=== PATIENT | male | born 1940 | race African-American/Black ===

== ENCOUNTER 2022-11-12 10:00 | Inpatient (IN) | payer MEDICARE, MEDICAID ==
[~2022-11-12] VITALS: Ht 175.3 cm; Wt 53.5 kg
[2022-11-12] MEDS ORDERED: IPRATROPIUM BROMIDE (0.02%) 0.5MG/2.5ML NEB HHN STA (10:06)
[2022-11-12] MEDS ORDERED: METHYLPREDNISOLONE SOD SUCC 125 MG/2 ML VIAL IV STA (10:06)
[2022-11-12] MEDS ORDERED: ALBUTEROL (0.083%) 2.5MG/3ML NEB HHN STA (10:06)
[2022-11-12 10:26] LABS: HEMATOCRIT. 35.1 % (42.0-52.0); HEMOGLOBIN. 11.9 g/dL (14.0-18.0); MEAN CORPUSCULAR VOLUME 82.6 fL (80.0-94.0); MEAN PLATELET VOLUME 8.6 fl (7.4-10.4); PLATELET 310 x1000/uL (130-400); RED BLOOD CELL COUNT 4.25 mill/uL (4.7-6.1); RED CELL DISTRIBUTION WIDTH 14.8 % (11.6-14.6)
[2022-11-12 10:31] LABS: CHLORIDE 98 mEq/L (98-107)
[2022-11-12 11:00] LABS: PLATELET ESTIMATE NORMAL
[2022-11-12 11:10] LABS: BG BASE EXCESS 0.3 mmol/L (-2.0-2.0); BG CARBOXYHEMOGLOBIN 0.6 % (0.5-1.5); BG FRACTION INSPIRED OXYGEN 50; BG HCO3 ACT 29.9 mmol/L (22.0-26.0); BG METHEMOGLOBIN 0.6 % (0.0-1.5); BG OXYHEMOGLOBIN 95.8 % (94.0-97.0); BG PH 7.218 (7.350-7.450); BG PO2 104.1 mmHg (75.0-100.0); BG SAMPLE SITE RIGHT BRACHIAL; BG TOTAL HEMOGLOBIN 12.5 g/dL (12.0-18.0); BG TOTAL RESPIRATORY RATE 34 b/min; BG VENT MODE MASK - BIPAP
[2022-11-12] MEDS ORDERED: ONDANSETRON HCL 4MG/2ML INJ IV PRN (13:30)
[2022-11-12] MEDS ORDERED: MAGNESIUM/ALUMINUM HYDROXIDE/SIMETHICONE 30ML UDC PO PRN (13:30)
[2022-11-12] MEDS: AMLODIPINE 5MG TABLET PO SCH ×2 (13:30→21:00)
[2022-11-12] MEDS ORDERED: GUAIFENESIN 200MG/10ML SUGAR FREE UDC PO PRN (13:30)
[2022-11-12] MEDS ORDERED: ACETAMINOPHEN 325MG TABLET PO PRN ×2 (13:30)
[2022-11-12] MEDS: SODIUM CHLORIDE 0.9% 1,000 ML IV SCH (13:30)
[2022-11-12] MEDS ORDERED: CEFTRIAXONE 1GM PREMIX 50 ML IV SCH (13:30)
[2022-11-12] MEDS ORDERED: DOCUSATE SODIUM 100MG CAPSULE PO PRN (13:30)
[2022-11-12] MEDS ORDERED: DEXTROSE 50% WATER 50ML SYRINGE IV PRN (13:30)
[2022-11-12] MEDS ORDERED: CLONIDINE 0.1MG TABLET PO PRN (13:30)
[2022-11-12] MEDS ORDERED: NA PHOS,M-B/NA PHOS,DI-BA ENEMA 118ML PR PRN (13:30)
[2022-11-12] MEDS ORDERED: METHYLPREDNISOLONE SOD SUCC 125 MG/2 ML VIAL IV SCH (14:00)
[2022-11-12] MEDS: ENOXAPARIN 40MG/0.4ML SYR SUBCUT SCH (14:00)
[2022-11-12] MEDS ORDERED: AZITHROMYCIN 500 MG in DEXT 5% WATER 250 ML IV SCH (14:30)
[2022-11-12] MEDS ORDERED: HYDRALAZINE 20MG/ML VIAL IV PRN (14:45)
[2022-11-12] MEDS: IPRATROPIUM/ALBUTEROL 0.5-3(2.5)MG/3ML NEB HHN SCH ×2 (15:06→20:54)
[2022-11-12] MEDS ORDERED: RACEPINEPHRINE 2.25% 0.5ML NEB VIAL HHN PRN (15:45)
[2022-11-12] MEDS: METHYLPREDNISOLONE SOD SUCC 125 MG/2 ML VIAL IV SCH (16:00)
[2022-11-12 16:10] LABS: D-DIMER 1.1 mg/L FEU (<0.50); PROTHROMBIN TIME 10.9 sec (9.6-11.0)
[2022-11-12 16:18] LABS: PROSTRATE SPECIFIC AG TOTAL 7.23 ng/mL (0.0-4.0)
[2022-11-12 16:20] LABS: FOLIC ACID (FOLATE) SERUM 16.2 ng/mL (>5.38)
[2022-11-12] MEDS: BLOOD SUGAR DIAGNOSTIC STRIP TEST SCH ×2 (17:00→21:52)
[2022-11-12 17:10] LABS: BG BASE EXCESS -0.9 mmol/L (-2.0-2.0); BG CARBOXYHEMOGLOBIN 0.5 % (0.5-1.5); BG DEOXYHEMOGLOBIN 1.9 % (0.0-5.0); BG METHEMOGLOBIN 0.6 % (0.0-1.5); BG OXYGEN SATURATION 98.1 % (92.0-98.5); BG PH 7.233 (7.350-7.450); BG PO2 111.1 mmHg (75.0-100.0); BG SAMPLE SITE RIGHT BRACHIAL; BG TOTAL HEMOGLOBIN 12.8 g/dL (12.0-18.0); BG VENT MODE MASK - BIPAP
[2022-11-12] MEDS: INSULIN LISPRO 100 UNITS/ML SUBCUT SCH ×2 (18:20→21:52)
[2022-11-12 19:22] LABS: CLARITY URINE CLEAR (CLEAR); COLOR URINE YELLOW (YELLOW); KETONES URINE NEGATIVE (NEGATIVE); LEUKOCYTE ESTERASE URINE NEGATIVE (NEGATIVE); NITRITE URINE NEGATIVE (NEGATIVE); OCCULT BLOOD URINE 2+ (NEGATIVE); PROTEIN URINE 2+ (NEGATIVE); SPECIFIC GRAVITY URINE 1.017 (1.005-1.030); UROBILINOGEN URINE 0.2 E.U./dL (0.2-1.0)
[2022-11-12] MEDS: FAMOTIDINE 20MG TABLET PO SCH (21:52)
[2022-11-12] MEDS ORDERED: METHYLPREDNISOLONE SOD SUCC 40 MG/ML VIAL IV SCH (22:00)
[2022-11-13] MEDS: IPRATROPIUM/ALBUTEROL 0.5-3(2.5)MG/3ML NEB HHN SCH ×7 (00:48→23:31)
[2022-11-13] MEDS ORDERED: METHYLPREDNISOLONE SOD SUCC 40 MG/ML VIAL IV NR (02:45)
[2022-11-13] MEDS: METHYLPREDNISOLONE SOD SUCC 125 MG/2 ML VIAL IV SCH ×3 (03:09→21:16)
[2022-11-13] MEDS: INSULIN LISPRO 100 UNITS/ML SUBCUT SCH ×4 (07:00→20:37)
[2022-11-13] MEDS: BLOOD SUGAR DIAGNOSTIC STRIP TEST SCH ×4 (07:06→20:36)
[2022-11-13 10:01] LABS: BG BASE EXCESS 1.7 mmol/L (-2.0-2.0); BG CARBOXYHEMOGLOBIN 0.6 % (0.5-1.5); BG DEOXYHEMOGLOBIN 1.6 % (0.0-5.0); BG FRACTION INSPIRED OXYGEN 50; BG METHEMOGLOBIN 0.4 % (0.0-1.5); BG OXYGEN SATURATION 98.4 % (92.0-98.5); BG OXYHEMOGLOBIN 97.4 % (94.0-97.0); BG PCO2 85.1 mmHg (35.0-45.0); BG PH 7.193 (7.350-7.450); BG PO2 119.6 mmHg (75.0-100.0); BG SAMPLE SITE RIGHT RADIAL; BG TOTAL RESPIRATORY RATE 20 b/min; BG VENT MODE MASK - BIPAP
[2022-11-13] MEDS: SODIUM CHLORIDE 0.9% 1,000 ML IV SCH (11:20)
[2022-11-13 11:38] VITALS: BP 131/59
[2022-11-13] MEDS: AMLODIPINE 5MG TABLET PO SCH ×2 (11:52→20:36)
[2022-11-13] MEDS: ENOXAPARIN 40MG/0.4ML SYR SUBCUT SCH (13:54)
[2022-11-13 14:00] VITALS: BP 118/50
[2022-11-13] MEDS: CEFTRIAXONE 1GM PREMIX 50 ML IV SCH (15:27)
[2022-11-13 16:00] VITALS: BP 124/67
[2022-11-13] MEDS: AZITHROMYCIN 500 MG in DEXT 5% WATER 250 ML IV SCH (16:26)
[2022-11-13 18:00] VITALS: BP 111/56
[2022-11-13 20:00] VITALS: BP 133/73
[2022-11-13] MEDS: FAMOTIDINE 20MG TABLET PO SCH (20:35)
[2022-11-13 22:00] VITALS: BP 112/59
[2022-11-14] VITALS (13 sets, daily range): BP systolic 101–135; BP diastolic 50–92
[2022-11-14] MEDS: IPRATROPIUM/ALBUTEROL 0.5-3(2.5)MG/3ML NEB HHN SCH ×4 (04:00→20:25)
[2022-11-14 05:27] LABS: HEMATOCRIT. 32.3 % (42.0-52.0); HEMOGLOBIN. 10.7 g/dL (14.0-18.0); MEAN CORPUSCULAR HEMOGLOBIN 27.5 pg (28.0-32.0); MEAN CORPUSCULAR VOLUME 83.2 fL (80.0-94.0); MEAN PLATELET VOLUME 8.2 fl (7.4-10.4); PLATELET 295 x1000/uL (130-400); RED BLOOD CELL COUNT 3.88 mill/uL (4.7-6.1); RED CELL DISTRIBUTION WIDTH 14.4 % (11.6-14.6)
[2022-11-14] MEDS: SODIUM CHLORIDE 0.9% 1,000 ML IV SCH (05:51)
[2022-11-14] MEDS: BLOOD SUGAR DIAGNOSTIC STRIP TEST SCH ×4 (05:51→21:51)
[2022-11-14] MEDS: METHYLPREDNISOLONE SOD SUCC 125 MG/2 ML VIAL IV SCH ×3 (05:51→21:53)
[2022-11-14] MEDS: INSULIN LISPRO 100 UNITS/ML SUBCUT SCH ×4 (06:00→21:00)
[2022-11-14 06:02] LABS: CHLORIDE 99 mEq/L (98-107)
[2022-11-14 06:21] LABS: PHOSPHORUS 2.7 mg/dL (2.5-4.9)
[2022-11-14 08:39] LABS: BG CARBOXYHEMOGLOBIN 0.9 % (0.5-1.5); BG DEOXYHEMOGLOBIN 5.4 % (0.0-5.0); BG FRACTION INSPIRED OXYGEN 24; BG HCO3 ACT 29.2 mmol/L (22.0-26.0); BG METHEMOGLOBIN 0.2 % (0.0-1.5); BG OXYGEN SATURATION 94.5 % (92.0-98.5); BG OXYHEMOGLOBIN 93.5 % (94.0-97.0); BG PCO2 52.1 mmHg (35.0-45.0); BG PH 7.367 (7.350-7.450); BG PO2 70.2 mmHg (75.0-100.0); BG SAMPLE SITE RIGHT BRACHIAL; BG TOTAL HEMOGLOBIN 11.9 g/dL (12.0-18.0); BG VENT MODE MASK - BIPAP
[2022-11-14] MEDS: AMLODIPINE 5MG TABLET PO SCH ×2 (08:51→21:53)
[2022-11-14 10:45] LABS: PLATELET ESTIMATE NORMAL
[2022-11-14] MEDS: TAMSULOSIN HCL 0.4MG SR CAPSULE PO SCH (11:40)
[2022-11-14] MEDS: CEFTRIAXONE 1GM PREMIX 50 ML IV SCH (15:36)
[2022-11-14] MEDS: ENOXAPARIN 30MG/0.3ML SYR SUBCUT SCH (15:59)
[2022-11-14] MEDS ORDERED: ALBUTEROL (0.083%) 2.5MG/3ML NEB HHN SCH (16:00)
[2022-11-14] MEDS ORDERED: IPRATROPIUM BROMIDE (0.02%) 0.5MG/2.5ML NEB HHN SCH (16:00)
[2022-11-14] MEDS: AZITHROMYCIN 500 MG in DEXT 5% WATER 250 ML IV SCH (16:29)
[2022-11-14] MEDS: FAMOTIDINE 20MG TABLET PO SCH (21:53)
[2022-11-15] VITALS (10 sets, daily range): BP systolic 98–145; BP diastolic 47–82
[2022-11-15] MEDS: IPRATROPIUM/ALBUTEROL 0.5-3(2.5)MG/3ML NEB HHN SCH ×5 (00:51→21:55)
[2022-11-15] MEDS: SODIUM CHLORIDE 0.9% 1,000 ML IV SCH ×2 (01:20→20:43)
[2022-11-15] MEDS: METHYLPREDNISOLONE SOD SUCC 125 MG/2 ML VIAL IV SCH (05:03)
[2022-11-15 07:12] LABS: HEMATOCRIT. 32.1 % (42.0-52.0); MEAN CORPUSCULAR HEMOGLOBIN 28.2 pg (28.0-32.0); MEAN CORPUSCULAR VOLUME 82.6 fL (80.0-94.0); MEAN PLATELET VOLUME 8.3 fl (7.4-10.4); PLATELET 313 x1000/uL (130-400); RED BLOOD CELL COUNT 3.89 mill/uL (4.7-6.1); RED CELL DISTRIBUTION WIDTH 14.2 % (11.6-14.6)
[2022-11-15] MEDS: BLOOD SUGAR DIAGNOSTIC STRIP TEST SCH ×5 (07:37→20:11)
[2022-11-15] MEDS: INSULIN LISPRO 100 UNITS/ML SUBCUT SCH ×4 (07:37→20:13)
[2022-11-15 08:05] LABS: CHLORIDE 101 mEq/L (98-107)
[2022-11-15 09:06] LABS: BG BASE EXCESS 3.5 mmol/L (-2.0-2.0); BG CARBOXYHEMOGLOBIN 0.3 % (0.5-1.5); BG DEOXYHEMOGLOBIN 6.2 % (0.0-5.0); BG FRACTION INSPIRED OXYGEN 21; BG HCO3 ACT 27.9 mmol/L (22.0-26.0); BG METHEMOGLOBIN 0.3 % (0.0-1.5); BG OXYGEN SATURATION 93.8 % (92.0-98.5); BG OXYHEMOGLOBIN 93.2 % (94.0-97.0); BG PCO2 41.7 mmHg (35.0-45.0); BG PH 7.443 (7.350-7.450); BG PO2 69.4 mmHg (75.0-100.0); BG SAMPLE SITE RIGHT RADIAL; BG TOTAL HEMOGLOBIN 11.6 g/dL (12.0-18.0); BG VENT MODE ROOM AIR
[2022-11-15] MEDS: TAMSULOSIN HCL 0.4MG SR CAPSULE PO SCH (09:42)
[2022-11-15] MEDS: AMLODIPINE 5MG TABLET PO SCH ×2 (09:42→20:11)
[2022-11-15] MEDS: CEFTRIAXONE 1GM PREMIX 50 ML IV SCH (15:56)
[2022-11-15] MEDS: ENOXAPARIN 30MG/0.3ML SYR SUBCUT SCH (15:57)
[2022-11-15] MEDS ORDERED: AZITHROMYCIN 500 MG TABLET PO SCH (16:00)
[2022-11-15] MEDS: METHYLPREDNISOLONE SOD SUCC 40 MG/ML VIAL IV SCH (18:23)
[2022-11-15] MEDS: FAMOTIDINE 20MG TABLET PO SCH (20:10)
[2022-11-15 21:00] LABS: PLATELET ESTIMATE NORMAL
[2022-11-15] MEDS: BUDESONIDE 0.5MG/2ML NEB HHN SCH (21:55)
[2022-11-16 00:01] VITALS: BP 133/51
[2022-11-16] MEDS: IPRATROPIUM/ALBUTEROL 0.5-3(2.5)MG/3ML NEB HHN SCH ×2 (01:17→09:00)
[2022-11-16 04:00] VITALS: BP 99/57
[2022-11-16] MEDS: BLOOD SUGAR DIAGNOSTIC STRIP TEST SCH ×2 (05:18→12:14)
[2022-11-16] MEDS: INSULIN LISPRO 100 UNITS/ML SUBCUT SCH ×2 (05:18→12:38)
[2022-11-16 06:50] LABS: HEMATOCRIT. 30.5 % (42.0-52.0); HEMOGLOBIN. 10.3 g/dL (14.0-18.0); MEAN CORPUSCULAR HEMOGLOBIN 27.6 pg (28.0-32.0); MEAN CORPUSCULAR VOLUME 81.8 fL (80.0-94.0); MEAN PLATELET VOLUME 7.7 fl (7.4-10.4); PLATELET 309 x1000/uL (130-400); RED BLOOD CELL COUNT 3.73 mill/uL (4.7-6.1); RED CELL DISTRIBUTION WIDTH 14.3 % (11.6-14.6)
[2022-11-16 08:00] VITALS: BP 150/58
[2022-11-16] MEDS: METHYLPREDNISOLONE SOD SUCC 40 MG/ML VIAL IV SCH (08:50)
[2022-11-16] MEDS: AMLODIPINE 5MG TABLET PO SCH (08:51)
[2022-11-16] MEDS: TAMSULOSIN HCL 0.4MG SR CAPSULE PO SCH (08:51)
[2022-11-16] MEDS: BUDESONIDE 0.5MG/2ML NEB HHN SCH (09:00)
[2022-11-16 11:21] VITALS: BP 150/53
[2022-11-16 11:49] LABS: BG BASE EXCESS 4.7 mmol/L (-2.0-2.0); BG CARBOXYHEMOGLOBIN 0.3 % (0.5-1.5); BG DEOXYHEMOGLOBIN 8.5 % (0.0-5.0); BG FRACTION INSPIRED OXYGEN 21; BG HCO3 ACT 28.9 mmol/L (22.0-26.0); BG METHEMOGLOBIN 0.2 % (0.0-1.5); BG OXYGEN SATURATION 91.5 % (92.0-98.5); BG PCO2 41.6 mmHg (35.0-45.0); BG PO2 57.8 mmHg (75.0-100.0); BG SAMPLE SITE LEFT RADIAL; BG TOTAL HEMOGLOBIN 11.4 g/dL (12.0-18.0); BG VENT MODE ROOM AIR
[2022-11-16 12:00] VITALS: BP 148/62
[2022-11-16 12:04] LABS: CHLORIDE 103 mEq/L (98-107)
[2022-11-16] MEDS ORDERED: CEFTRIAXONE 1,000 MG in DEXTROSE 5% WATER 50 ML IV SCH (15:00)
[2022-11-16 19:04] LABS: PLATELET ESTIMATE NORMAL
== END 2022-11-16 13:54 | disposition home or self-care (01) | DRG 189 ==
LOC: ER 10:15 → MICUSO 13:31 → MICUNO 11-13 11:14 → 5EST 11-14 13:43 → 7WST 11-15 16:45
PROVIDERS: ADMIT Internal Medicine; ATTEND Internal Medicine
PROC: 5A09457 Assistance with Respiratory Ventilation, 24-96 Consecutive Hours, Continuous Positive Airway Pressure (ICD-10-PCS; principal; 2022-11-12)
PROC: 5A09457 Assistance with Respiratory Ventilation, 24-96 Consecutive Hours, Continuous Positive Airway Pressure (ICD-10-PCS; 2022-11-13)
PROC: 5A09457 Assistance with Respiratory Ventilation, 24-96 Consecutive Hours, Continuous Positive Airway Pressure (ICD-10-PCS; 2022-11-14)
PROC: 5A09457 Assistance with Respiratory Ventilation, 24-96 Consecutive Hours, Continuous Positive Airway Pressure (ICD-10-PCS; 2022-11-15)
DX: J96.01 Acute respiratory failure with hypoxia (principal); J44.1 Chronic obstructive pulmonary disease with (acute) exacerbation; J98.11 Atelectasis; E87.29 Other acidosis; J96.02 Acute respiratory failure with hypercapnia; E11.9 Type 2 diabetes mellitus without complications; D63.8 Anemia in other chronic diseases classified elsewhere; I10 Essential (primary) hypertension; E78.5 Hyperlipidemia, unspecified; D72.829 Elevated white blood cell count, unspecified; E78.00 Pure hypercholesterolemia, unspecified; F17.210 Nicotine dependence, cigarettes, uncomplicated; N40.0 Benign prostatic hyperplasia without lower urinary tract symptoms
CPT/HCPCS: 36415; 36600; 70490; 71045; 71250; 76872; 80048; 80053; 80061; 81003; 82375; 82607; 82746; 82805; 82962; 83036; 83605; 83735; 83880; 84100; 84145; 84153; 84443; 84484; 85025; 85379; 87804; 93005; 93970; 94640; 94660; 97162; 97165; 99291; J0456; J0696; J1650; J1815; J2920; J2930; J7060; J7626; G0103

== ENCOUNTER 2022-11-24 12:11 | Inpatient (IN) | payer MEDICARE, MEDICAID ==
[~2022-11-24] VITALS: Ht 182.9 cm; Wt 60.5 kg
[2022-11-24] MEDS ORDERED: METHYLPREDNISOLONE SOD SUCC 125 MG/2 ML VIAL IV STA (12:27)
[2022-11-24] MEDS ORDERED: ALBUTEROL (0.083%) 2.5MG/3ML NEB HHN STA (12:27)
[2022-11-24 13:41] LABS: MEAN CORPUSCULAR HEMOGLOBIN 27.8 pg (28.0-32.0); MEAN CORPUSCULAR VOLUME 83.4 fL (80.0-94.0); MEAN PLATELET VOLUME 7.9 fl (7.4-10.4); PLATELET 297 x1000/uL (130-400); RED BLOOD CELL COUNT 3.96 mill/uL (4.7-6.1); RED CELL DISTRIBUTION WIDTH 14.3 % (11.6-14.6)
[2022-11-24 13:51] LABS: CHLORIDE 96 mEq/L (98-107)
[2022-11-24 17:13] LABS: PLATELET ESTIMATE NORMAL
[2022-11-24] MEDS ORDERED: ACETAMINOPHEN 325MG TABLET PO PRN (18:00)
[2022-11-24] MEDS ORDERED: CLONIDINE 0.1MG TABLET PO PRN (18:00)
[2022-11-24] MEDS ORDERED: MAGNESIUM/ALUMINUM HYDROXIDE/SIMETHICONE 30ML UDC PO PRN (18:00)
[2022-11-24] MEDS ORDERED: IPRATROPIUM/ALBUTEROL 0.5-3(2.5)MG/3ML NEB HHN SCH (18:00)
[2022-11-24 18:25] LABS: BG BASE EXCESS 3.9 mmol/L (-2.0-2.0); BG DEOXYHEMOGLOBIN 3.7 % (0.0-5.0); BG HCO3 ACT 31.1 mmol/L (22.0-26.0); BG METHEMOGLOBIN 0.4 % (0.0-1.5); BG OXYGEN SATURATION 96.3 % (92.0-98.5); BG OXYHEMOGLOBIN 95.9 % (94.0-97.0); BG PCO2 59.9 mmHg (35.0-45.0); BG PH 7.333 (7.350-7.450); BG PO2 88.7 mmHg (75.0-100.0); BG SAMPLE SITE RIGHT BRACHIAL; BG TOTAL HEMOGLOBIN 11.8 g/dL (12.0-18.0); BG VENT MODE NASAL CANNULA
[2022-11-24 18:56] LABS: PHOSPHORUS 3.3 mg/dL (2.5-4.9)
[2022-11-24] MEDS ORDERED: CEFTRIAXONE 1GM PREMIX 50 ML IV NR (19:00)
[2022-11-24 19:02] LABS: CLARITY URINE CLEAR (CLEAR); COLOR URINE YELLOW (YELLOW); KETONES URINE NEGATIVE (NEGATIVE); LEUKOCYTE ESTERASE URINE NEGATIVE (NEGATIVE); NITRITE URINE NEGATIVE (NEGATIVE); OCCULT BLOOD URINE NEGATIVE (NEGATIVE); PH URINE 5.5 (4.5-8.0); PROTEIN URINE TRACE (NEGATIVE); SPECIFIC GRAVITY URINE 1.013 (1.005-1.030); UROBILINOGEN URINE 0.2 E.U./dL (0.2-1.0)
[2022-11-24] MEDS ORDERED: ENOXAPARIN 40MG/0.4ML SYR SUBCUT SCH (20:00)
[2022-11-24] MEDS: METHYLPREDNISOLONE SOD SUCC 40 MG/ML VIAL IV SCH (21:29)
[2022-11-24] MEDS: CEFTRIAXONE 1,000 MG in DEXTROSE 5% WATER 50 ML IV SCH (21:31)
[2022-11-24 22:10] VITALS: BP 148/56
[2022-11-24 22:34] VITALS: BP 148/56
[2022-11-24] MEDS ORDERED: ALBUTEROL (22:58)
[2022-11-24] MEDS ORDERED: ASPI-1406 PO (22:58)
[2022-11-24] MEDS ORDERED: ATOR20TA65 PO (22:58)
[2022-11-24] MEDS ORDERED: FLUT1BLS12 IH (22:58)
[2022-11-24] MEDS ORDERED: CHOL200059 PO (22:58)
[2022-11-24] MEDS ORDERED: AMLO5TAB88 PO (22:58)
[2022-11-24] MEDS ORDERED: P20 PO (22:58)
[2022-11-24] MEDS ORDERED: LOSA1TAB37 PO (22:58)
[2022-11-24] MEDS ORDERED: METF-414 PO (22:58)
[2022-11-25] VITALS: BP 157/81
[2022-11-25] MEDS: METHYLPREDNISOLONE SOD SUCC 40 MG/ML VIAL IV SCH ×3 (03:24→18:00)
[2022-11-25 04:00] VITALS: BP 143/63
[2022-11-25 06:08] LABS: T4 FREE 1.14 ng/dL (0.76-1.46)
[2022-11-25] MEDS ORDERED: HYDRALAZINE HCL 10MG TABLET PO PRN (07:30)
[2022-11-25 08:00] VITALS: BP 142/66
[2022-11-25 08:26] LABS: HEMATOCRIT 34.6 % (42.0-52.0); HEMOGLOBIN 11.2 g/dL (14.0-18.0); MEAN CORPUSCULAR HEMOGLOBIN 27.4 pg (28.0-32.0); PLATELET 292 x1000/uL (130-400); RED BLOOD CELL COUNT 4.07 mill/uL (4.7-6.1); RED CELL DISTRIBUTION WIDTH 14.8 % (11.6-14.6)
[2022-11-25 08:33] LABS: CHLORIDE 100 mEq/L (98-107)
[2022-11-25] MEDS ORDERED: AZITHROMYCIN 500MG/250ML 250 ML IV SCH (09:00)
[2022-11-25] MEDS: AMLODIPINE 5MG TABLET PO SCH (09:28)
[2022-11-25] MEDS ORDERED: RACEPINEPHRINE 2.25% 0.5ML NEB VIAL HHN SCH (09:30)
[2022-11-25] MEDS: AZITHROMYCIN 500MG in DEXTROSE 5% WATER 250ML IV SCH (09:59)
[2022-11-25 10:26] LABS: BG BASE EXCESS 6.2 mmol/L (-2.0-2.0); BG CARBOXYHEMOGLOBIN 0.3 % (0.5-1.5); BG DEOXYHEMOGLOBIN 1.9 % (0.0-5.0); BG FRACTION INSPIRED OXYGEN 36; BG HCO3 ACT 36.5 mmol/L (22.0-26.0); BG METHEMOGLOBIN 0.6 % (0.0-1.5); BG OXYGEN SATURATION 98.1 % (92.0-98.5); BG OXYHEMOGLOBIN 97.2 % (94.0-97.0); BG PCO2 90.4 mmHg (35.0-45.0); BG PH 7.224 (7.350-7.450); BG SAMPLE SITE RIGHT BRACHIAL; BG TOTAL HEMOGLOBIN 11.8 g/dL (12.0-18.0)
[2022-11-25] MEDS: IPRATROPIUM/ALBUTEROL 0.5-3(2.5)MG/3ML NEB HHN SCH ×3 (10:28→21:43)
[2022-11-25] MEDS: BLOOD SUGAR DIAGNOSTIC STRIP TEST SCH ×3 (11:40→21:20)
[2022-11-25 12:00] VITALS: BP 150/62
[2022-11-25] MEDS ORDERED: IPRATROPIUM/ALBUTEROL 0.5-3(2.5)MG/3ML NEB HHN SCH (12:00)
[2022-11-25] MEDS: INSULIN LISPRO 100 UNITS/ML SUBCUT SCH ×3 (12:10→21:20)
[2022-11-25 13:46] LABS: BG BASE EXCESS 2.8 mmol/L (-2.0-2.0); BG CARBOXYHEMOGLOBIN 0.5 % (0.5-1.5); BG FRACTION INSPIRED OXYGEN 35; BG HCO3 ACT 32.4 mmol/L (22.0-26.0); BG METHEMOGLOBIN 0.4 % (0.0-1.5); BG OXYHEMOGLOBIN 96.1 % (94.0-97.0); BG PCO2 76.2 mmHg (35.0-45.0); BG PH 7.247 (7.350-7.450); BG PO2 99.4 mmHg (75.0-100.0); BG SAMPLE SITE RIGHT RADIAL; BG TOTAL HEMOGLOBIN 13.5 g/dL (12.0-18.0); BG VENT MODE MASK - BIPAP
[2022-11-25] MEDS ORDERED: SODIUM BICARBONATE 8.4% 1 MEQ/ML 50ML SYR IV NR (14:30)
[2022-11-25] MEDS ORDERED: RACEPINEPHRINE 2.25% 0.5ML NEB VIAL HHN PRN (15:00)
[2022-11-25 16:00] VITALS: BP 153/58
[2022-11-25 18:22] LABS: BG BASE EXCESS 7.9 mmol/L (-2.0-2.0); BG CARBOXYHEMOGLOBIN 0.3 % (0.5-1.5); BG FRACTION INSPIRED OXYGEN 35; BG HCO3 ACT 37.9 mmol/L (22.0-26.0); BG METHEMOGLOBIN 0.3 % (0.0-1.5); BG OXYHEMOGLOBIN 97.4 % (94.0-97.0); BG PCO2 88.1 mmHg (35.0-45.0); BG PH 7.251 (7.350-7.450); BG PO2 123.7 mmHg (75.0-100.0); BG SAMPLE SITE RIGHT RADIAL; BG TOTAL HEMOGLOBIN 11.7 g/dL (12.0-18.0); BG VENT MODE MASK - BIPAP
[2022-11-25] MEDS ORDERED: METHYLPREDNISOLONE SOD SUCC 125 MG/2 ML VIAL IV NR (18:30)
[2022-11-25 20:00] VITALS: BP 123/54
[2022-11-25] MEDS: ATORVASTATIN CALCIUM 40MG TABLET PO SCH (21:20)
[2022-11-25] MEDS: ENOXAPARIN 30MG/0.3ML SYR SUBCUT SCH (21:20)
[2022-11-26] VITALS: BP 141/60
[2022-11-26 01:13] LABS: BG BASE EXCESS 8.6 mmol/L (-2.0-2.0); BG CARBOXYHEMOGLOBIN 0.1 % (0.5-1.5); BG DEOXYHEMOGLOBIN 2.4 % (0.0-5.0); BG FRACTION INSPIRED OXYGEN 0.35; BG HCO3 ACT 38.7 mmol/L (22.0-26.0); BG METHEMOGLOBIN 0.4 % (0.0-1.5); BG OXYGEN SATURATION 97.6 % (92.0-98.5); BG OXYHEMOGLOBIN 97.1 % (94.0-97.0); BG PCO2 89.7 mmHg (35.0-45.0); BG PH 7.253 (7.350-7.450); BG PO2 108.2 mmHg (75.0-100.0); BG SAMPLE SITE RIGHT RADIAL; BG TOTAL HEMOGLOBIN 11.7 g/dL (12.0-18.0); BG VENT MODE MASK - BIPAP
[2022-11-26] MEDS: METHYLPREDNISOLONE SOD SUCC 40 MG/ML VIAL IV SCH ×3 (02:09→17:38)
[2022-11-26 04:00] VITALS: BP 135/54
[2022-11-26] MEDS: IPRATROPIUM/ALBUTEROL 0.5-3(2.5)MG/3ML NEB HHN SCH ×5 (04:52→21:17)
[2022-11-26 05:41] LABS: HEMATOCRIT 34.6 % (42.0-52.0); HEMOGLOBIN 11.2 g/dL (14.0-18.0); MEAN CORPUSCULAR HEMOGLOBIN 27.9 pg (28.0-32.0); MEAN CORPUSCULAR VOLUME 86.1 fL (80.0-94.0); PLATELET 269 x1000/uL (130-400); RED BLOOD CELL COUNT 4.01 mill/uL (4.7-6.1); RED CELL DISTRIBUTION WIDTH 14.5 % (11.6-14.6)
[2022-11-26 05:53] LABS: CHLORIDE 101 mEq/L (98-107)
[2022-11-26] MEDS: INSULIN LISPRO 100 UNITS/ML SUBCUT SCH ×4 (07:10→21:44)
[2022-11-26] MEDS: BLOOD SUGAR DIAGNOSTIC STRIP TEST SCH ×4 (07:19→21:00)
[2022-11-26 08:00] VITALS: BP 164/61
[2022-11-26 08:41] LABS: BG BASE EXCESS 8.3 mmol/L (-2.0-2.0); BG CARBOXYHEMOGLOBIN 0.1 % (0.5-1.5); BG DEOXYHEMOGLOBIN 2.6 % (0.0-5.0); BG HCO3 ACT 38.2 mmol/L (22.0-26.0); BG METHEMOGLOBIN 0.3 % (0.0-1.5); BG OXYGEN SATURATION 97.4 % (92.0-98.5); BG PCO2 85.2 mmHg (35.0-45.0); BG PH 7.269 (7.350-7.450); BG SAMPLE SITE RIGHT BRACHIAL; BG TOTAL HEMOGLOBIN 12.2 g/dL (12.0-18.0); BG VENT MODE NASAL CANNULA
[2022-11-26] MEDS: AMLODIPINE 5MG TABLET PO SCH (08:44)
[2022-11-26] MEDS: AZITHROMYCIN 500MG in DEXTROSE 5% WATER 250ML IV SCH (08:45)
[2022-11-26 12:00] VITALS: BP 160/58
[2022-11-26 16:00] VITALS: BP 134/54
[2022-11-26 17:08] LABS: BG BASE EXCESS 10.7 mmol/L (-2.0-2.0); BG CARBOXYHEMOGLOBIN 0.2 % (0.5-1.5); BG DEOXYHEMOGLOBIN 4.1 % (0.0-5.0); BG HCO3 ACT 38.8 mmol/L (22.0-26.0); BG METHEMOGLOBIN 0.2 % (0.0-1.5); BG OXYGEN SATURATION 95.9 % (92.0-98.5); BG OXYHEMOGLOBIN 95.5 % (94.0-97.0); BG PCO2 72.6 mmHg (35.0-45.0); BG PH 7.346 (7.350-7.450); BG PO2 80.6 mmHg (75.0-100.0); BG SAMPLE SITE RIGHT BRACHIAL; BG TOTAL HEMOGLOBIN 11.4 g/dL (12.0-18.0); BG VENT MODE VAPOTHERM
[2022-11-26 20:00] VITALS: BP 94/46
[2022-11-26] MEDS: CEFTRIAXONE 1,000 MG in DEXTROSE 5% WATER 50 ML IV SCH (21:18)
[2022-11-26] MEDS: ENOXAPARIN 30MG/0.3ML SYR SUBCUT SCH (21:18)
[2022-11-26] MEDS: ATORVASTATIN CALCIUM 40MG TABLET PO SCH (21:18)
[2022-11-27] VITALS: BP 136/62
[2022-11-27] MEDS: IPRATROPIUM/ALBUTEROL 0.5-3(2.5)MG/3ML NEB HHN SCH ×6 (01:28→20:41)
[2022-11-27] MEDS: METHYLPREDNISOLONE SOD SUCC 40 MG/ML VIAL IV SCH ×3 (01:47→17:06)
[2022-11-27 04:00] VITALS: BP 142/46
[2022-11-27] MEDS: BLOOD SUGAR DIAGNOSTIC STRIP TEST SCH ×4 (05:49→21:04)
[2022-11-27] MEDS: INSULIN LISPRO 100 UNITS/ML SUBCUT SCH ×4 (05:50→21:05)
[2022-11-27 08:00] VITALS: BP 138/61
[2022-11-27 08:20] LABS: BG BASE EXCESS 10.9 mmol/L (-2.0-2.0); BG CARBOXYHEMOGLOBIN 0.4 % (0.5-1.5); BG DEOXYHEMOGLOBIN 3.4 % (0.0-5.0); BG FRACTION INSPIRED OXYGEN 30; BG HCO3 ACT 36.6 mmol/L (22.0-26.0); BG METHEMOGLOBIN 0.3 % (0.0-1.5); BG OXYGEN SATURATION 96.6 % (92.0-98.5); BG OXYHEMOGLOBIN 95.9 % (94.0-97.0); BG PCO2 54.2 mmHg (35.0-45.0); BG PH 7.447 (7.350-7.450); BG PO2 79.6 mmHg (75.0-100.0); BG SAMPLE SITE RIGHT RADIAL; BG TOTAL HEMOGLOBIN 11.2 g/dL (12.0-18.0); BG VENT MODE VAPOTHERM
[2022-11-27] MEDS: AMLODIPINE 5MG TABLET PO SCH (09:25)
[2022-11-27] MEDS: AZITHROMYCIN 500MG in DEXTROSE 5% WATER 250ML IV SCH (09:25)
[2022-11-27 12:00] VITALS: BP 143/59
[2022-11-27 16:00] VITALS: BP 143/56
[2022-11-27 19:50] LABS: HEMATOCRIT 33.3 % (42.0-52.0); HEMOGLOBIN 10.9 g/dL (14.0-18.0); MEAN CORPUSCULAR HEMOGLOBIN 27.5 pg (28.0-32.0); MEAN CORPUSCULAR VOLUME 83.6 fL (80.0-94.0); PLATELET 294 x1000/uL (130-400); RED BLOOD CELL COUNT 3.98 mill/uL (4.7-6.1); RED CELL DISTRIBUTION WIDTH 14.5 % (11.6-14.6)
[2022-11-27 20:00] VITALS: BP 133/55
[2022-11-27 20:21] LABS: CHLORIDE 94 mEq/L (98-107)
[2022-11-27] MEDS: ENOXAPARIN 30MG/0.3ML SYR SUBCUT SCH (21:04)
[2022-11-27] MEDS: ATORVASTATIN CALCIUM 40MG TABLET PO SCH (21:04)
[2022-11-27] MEDS: CEFTRIAXONE 1,000 MG in DEXTROSE 5% WATER 50 ML IV SCH (21:06)
[2022-11-28] VITALS: BP 148/63
[2022-11-28] MEDS: IPRATROPIUM/ALBUTEROL 0.5-3(2.5)MG/3ML NEB HHN SCH ×6 (00:17→20:56)
[2022-11-28] MEDS: METHYLPREDNISOLONE SOD SUCC 40 MG/ML VIAL IV SCH ×3 (02:07→17:16)
[2022-11-28 04:00] VITALS: BP 142/54
[2022-11-28] MEDS: INSULIN LISPRO 100 UNITS/ML SUBCUT SCH ×4 (06:20→21:00)
[2022-11-28] MEDS: BLOOD SUGAR DIAGNOSTIC STRIP TEST SCH ×4 (06:20→21:52)
[2022-11-28 06:31] LABS: CHLORIDE 95 mEq/L (98-107)
[2022-11-28 06:40] LABS: PHOSPHORUS 1.8 mg/dL (2.5-4.9)
[2022-11-28 06:51] LABS: HEMATOCRIT 30.2 % (42.0-52.0); HEMOGLOBIN 10.1 g/dL (14.0-18.0); MEAN CORPUSCULAR VOLUME 83.8 fL (80.0-94.0); PLATELET 245 x1000/uL (130-400); RED CELL DISTRIBUTION WIDTH 14.4 % (11.6-14.6)
[2022-11-28 08:00] VITALS: BP 160/60
[2022-11-28 09:01] LABS: BG BASE EXCESS 6.9 mmol/L (-2.0-2.0); BG CARBOXYHEMOGLOBIN 0.2 % (0.5-1.5); BG DEOXYHEMOGLOBIN 5.1 % (0.0-5.0); BG FRACTION INSPIRED OXYGEN 30; BG HCO3 ACT 32.5 mmol/L (22.0-26.0); BG METHEMOGLOBIN 0.4 % (0.0-1.5); BG OXYGEN SATURATION 94.9 % (92.0-98.5); BG OXYHEMOGLOBIN 94.3 % (94.0-97.0); BG PCO2 51.1 mmHg (35.0-45.0); BG PH 7.421 (7.350-7.450); BG PO2 72.3 mmHg (75.0-100.0); BG SAMPLE SITE RIGHT BRACHIAL; BG VENT MODE HIGH FLOW
[2022-11-28] MEDS: AZITHROMYCIN 500MG in DEXTROSE 5% WATER 250ML IV SCH (09:23)
[2022-11-28] MEDS: AMLODIPINE 5MG TABLET PO SCH (09:23)
[2022-11-28 12:00] VITALS: BP 135/56
[2022-11-28 16:00] VITALS: BP 129/55
[2022-11-28 20:00] VITALS: BP 148/65
[2022-11-28] MEDS: CEFTRIAXONE 1,000 MG in DEXTROSE 5% WATER 50 ML IV SCH (22:15)
[2022-11-28] MEDS: ATORVASTATIN CALCIUM 40MG TABLET PO SCH (22:22)
[2022-11-28] MEDS: ENOXAPARIN 30MG/0.3ML SYR SUBCUT SCH (22:23)
[2022-11-28] MEDS: DOCUSATE SODIUM 100MG CAPSULE PO PRN (22:23)
[2022-11-29] VITALS (7 sets, daily range): BP systolic 125–185; BP diastolic 48–58
[2022-11-29] MEDS: IPRATROPIUM/ALBUTEROL 0.5-3(2.5)MG/3ML NEB HHN SCH ×6 (00:40→20:49)
[2022-11-29] MEDS: METHYLPREDNISOLONE SOD SUCC 40 MG/ML VIAL IV SCH ×3 (02:21→17:31)
[2022-11-29 05:46] LABS: HEMATOCRIT 32.9 % (42.0-52.0); HEMOGLOBIN 11.1 g/dL (14.0-18.0); MEAN CORPUSCULAR HEMOGLOBIN 28.3 pg (28.0-32.0); MEAN CORPUSCULAR VOLUME 83.5 fL (80.0-94.0); PLATELET 236 x1000/uL (130-400); RED BLOOD CELL COUNT 3.94 mill/uL (4.7-6.1); RED CELL DISTRIBUTION WIDTH 14.6 % (11.6-14.6)
[2022-11-29 06:05] LABS: CHLORIDE 97 mEq/L (98-107)
[2022-11-29 06:21] LABS: PHOSPHORUS 2.7 mg/dL (2.5-4.9)
[2022-11-29] MEDS: BLOOD SUGAR DIAGNOSTIC STRIP TEST SCH ×4 (07:07→21:37)
[2022-11-29] MEDS: INSULIN LISPRO 100 UNITS/ML SUBCUT SCH ×4 (07:07→22:01)
[2022-11-29 08:03] LABS: BG CARBOXYHEMOGLOBIN 0.3 % (0.5-1.5); BG DEOXYHEMOGLOBIN 2.1 % (0.0-5.0); BG METHEMOGLOBIN 0.3 % (0.0-1.5); BG OXYGEN SATURATION 97.9 % (92.0-98.5); BG OXYHEMOGLOBIN 97.3 % (94.0-97.0); BG PCO2 70.8 mmHg (35.0-45.0); BG PH 7.324 (7.350-7.450); BG PO2 127.6 mmHg (75.0-100.0); BG SAMPLE SITE RIGHT BRACHIAL; BG VENT MODE NASAL CANNULA
[2022-11-29] MEDS: AZITHROMYCIN 500MG in DEXTROSE 5% WATER 250ML IV SCH (09:48)
[2022-11-29] MEDS: AMLODIPINE 5MG TABLET PO SCH (09:48)
[2022-11-29] MEDS: DOCUSATE SODIUM 100MG CAPSULE PO PRN (18:45)
[2022-11-29] MEDS: CEFTRIAXONE 1,000 MG in DEXTROSE 5% WATER 50 ML IV SCH (21:33)
[2022-11-29] MEDS: ATORVASTATIN CALCIUM 40MG TABLET PO SCH (21:38)
[2022-11-29] MEDS: ENOXAPARIN 30MG/0.3ML SYR SUBCUT SCH (21:39)
[2022-11-30] VITALS: BP 134/55
[2022-11-30] MEDS: IPRATROPIUM/ALBUTEROL 0.5-3(2.5)MG/3ML NEB HHN SCH ×3 (00:30→07:52)
[2022-11-30] MEDS: METHYLPREDNISOLONE SOD SUCC 40 MG/ML VIAL IV SCH ×3 (01:43→19:36)
[2022-11-30 04:00] VITALS: BP 143/72
[2022-11-30 05:21] LABS: CHLORIDE 97 mEq/L (98-107)
[2022-11-30 05:32] LABS: PHOSPHORUS 2.3 mg/dL (2.5-4.9)
[2022-11-30 05:44] LABS: HEMATOCRIT 29.4 % (42.0-52.0); HEMOGLOBIN 9.7 g/dL (14.0-18.0); MEAN CORPUSCULAR HEMOGLOBIN 27.8 pg (28.0-32.0); MEAN CORPUSCULAR VOLUME 84.3 fL (80.0-94.0); PLATELET 205 x1000/uL (130-400); RED BLOOD CELL COUNT 3.49 mill/uL (4.7-6.1); RED CELL DISTRIBUTION WIDTH 14.3 % (11.6-14.6)
[2022-11-30] MEDS: BLOOD SUGAR DIAGNOSTIC STRIP TEST SCH ×4 (06:20→21:58)
[2022-11-30] MEDS: INSULIN LISPRO 100 UNITS/ML SUBCUT SCH ×3 (06:20→21:00)
[2022-11-30 08:00] VITALS: BP 131/52
[2022-11-30 08:23] LABS: BG BASE EXCESS 10.3 mmol/L (-2.0-2.0); BG FRACTION INSPIRED OXYGEN 30; BG HCO3 ACT 38.9 mmol/L (22.0-26.0); BG PCO2 77.9 mmHg (35.0-45.0); BG PH 7.316 (7.350-7.450); BG SAMPLE SITE RIGHT RADIAL; BG TOTAL HEMOGLOBIN 10.8 g/dL (12.0-18.0); BG VENT MODE NASAL CANNULA
[2022-11-30] MEDS: AZITHROMYCIN 500MG in DEXTROSE 5% WATER 250ML IV SCH (09:25)
[2022-11-30] MEDS: AMLODIPINE 5MG TABLET PO SCH (09:25)
[2022-11-30] MEDS: DOCUSATE SODIUM 100MG CAPSULE PO PRN (09:26)
[2022-11-30] MEDS ORDERED: SODIUM POLYSTYRENE SULFONATE 15 G/60 ML BOT PO NR (10:45)
[2022-11-30] MEDS ORDERED: INSULIN LISPRO 100 UNITS/ML SUBCUT SCH (11:40)
[2022-11-30 12:00] VITALS: BP 127/60
[2022-11-30] MEDS: LACTULOSE 20G/30ML UDC PO SCH ×2 (13:34→21:54)
[2022-11-30 16:00] VITALS: BP 136/59
[2022-11-30 20:00] VITALS: BP 142/61
[2022-11-30] MEDS: CEFTRIAXONE 1,000 MG in DEXTROSE 5% WATER 50 ML IV SCH (21:54)
[2022-11-30] MEDS: ENOXAPARIN 30MG/0.3ML SYR SUBCUT SCH (21:54)
[2022-11-30] MEDS: INSULIN GLARGINE 100 UNITS/ML SUBCUT SCH (22:00)
[2022-12-01] VITALS: BP 123/48
[2022-12-01] MEDS: METHYLPREDNISOLONE SOD SUCC 40 MG/ML VIAL IV SCH ×3 (02:03→17:45)
[2022-12-01 04:00] VITALS: BP 129/50
[2022-12-01] MEDS: LACTULOSE 20G/30ML UDC PO SCH ×3 (04:56→22:08)
[2022-12-01] MEDS: BLOOD SUGAR DIAGNOSTIC STRIP TEST SCH ×4 (04:56→21:00)
[2022-12-01 06:32] LABS: HEMATOCRIT 30.1 % (42.0-52.0); HEMOGLOBIN 9.9 g/dL (14.0-18.0); MEAN CORPUSCULAR VOLUME 84.6 fL (80.0-94.0); PLATELET 195 x1000/uL (130-400); RED BLOOD CELL COUNT 3.56 mill/uL (4.7-6.1); RED CELL DISTRIBUTION WIDTH 14.4 % (11.6-14.6)
[2022-12-01] MEDS: INSULIN LISPRO 100 UNITS/ML SUBCUT SCH ×4 (06:40→21:00)
[2022-12-01 07:00] LABS: CHLORIDE 97 mEq/L (98-107)
[2022-12-01 08:00] VITALS: BP 128/62
[2022-12-01 09:36] LABS: BG BASE EXCESS 6.1 mmol/L (-2.0-2.0); BG CARBOXYHEMOGLOBIN 0.3 % (0.5-1.5); BG DEOXYHEMOGLOBIN 3.7 % (0.0-5.0); BG HCO3 ACT 34.1 mmol/L (22.0-26.0); BG METHEMOGLOBIN 0.5 % (0.0-1.5); BG OXYGEN SATURATION 96.3 % (92.0-98.5); BG OXYHEMOGLOBIN 95.5 % (94.0-97.0); BG PCO2 70.1 mmHg (35.0-45.0); BG PH 7.305 (7.350-7.450); BG PO2 88.5 mmHg (75.0-100.0); BG SAMPLE SITE RIGHT RADIAL; BG TOTAL HEMOGLOBIN 10.5 g/dL (12.0-18.0); BG TOTAL RESPIRATORY RATE 24 b/min; BG VENT MODE NASAL CANNULA
[2022-12-01] MEDS: AMLODIPINE 5MG TABLET PO SCH (09:55)
[2022-12-01] MEDS: SODIUM CHLORIDE 0.9% 1,000 ML IV SCH (09:57)
[2022-12-01 12:00] VITALS: BP 121/46
[2022-12-01 16:00] VITALS: BP 132/57
[2022-12-01 20:00] VITALS: BP 153/60
[2022-12-01] MEDS: INSULIN GLARGINE 100 UNITS/ML SUBCUT SCH (22:14)
[2022-12-01] MEDS: ENOXAPARIN 30MG/0.3ML SYR SUBCUT SCH (22:20)
[2022-12-02] VITALS: BP 147/54
[2022-12-02] MEDS: SODIUM CHLORIDE 0.9% 1,000 ML IV SCH ×2 (01:53→09:36)
[2022-12-02] MEDS: METHYLPREDNISOLONE SOD SUCC 40 MG/ML VIAL IV SCH ×3 (01:53→17:18)
[2022-12-02 04:00] VITALS: BP 137/54
[2022-12-02] MEDS: INSULIN LISPRO 100 UNITS/ML SUBCUT SCH ×4 (05:49→21:39)
[2022-12-02] MEDS: BLOOD SUGAR DIAGNOSTIC STRIP TEST SCH ×4 (05:49→21:38)
[2022-12-02] MEDS: LACTULOSE 20G/30ML UDC PO SCH ×3 (05:50→21:38)
[2022-12-02] MEDS: DEXTROSE 50% WATER 50ML SYRINGE IV PRN ×2 (05:51→12:01)
[2022-12-02 07:00] LABS: HEMATOCRIT 29.7 % (42.0-52.0); HEMOGLOBIN 9.7 g/dL (14.0-18.0); MEAN CORPUSCULAR HEMOGLOBIN 27.8 pg (28.0-32.0); MEAN CORPUSCULAR VOLUME 85.1 fL (80.0-94.0); PLATELET 180 x1000/uL (130-400); RED BLOOD CELL COUNT 3.48 mill/uL (4.7-6.1); RED CELL DISTRIBUTION WIDTH 14.7 % (11.6-14.6)
[2022-12-02 07:44] LABS: CHLORIDE 100 mEq/L (98-107)
[2022-12-02 08:00] VITALS: BP 154/66
[2022-12-02] MEDS: AMLODIPINE 5MG TABLET PO SCH (09:26)
[2022-12-02 12:00] VITALS: BP 146/54
[2022-12-02] MEDS ORDERED: DEXT 5%/0.45% NACL 500ML 500 ML IV ONE (12:00)
[2022-12-02] MEDS ORDERED: VERAPAMIL HCL 2.5 MG/1 ML 2ML VIAL IV ONE (13:49)
[2022-12-02] MEDS ORDERED: HEPARIN 1000 UNITS/ML 10ML ONE (13:49)
[2022-12-02] MEDS ORDERED: IODIXANOL 320MG/ML 100 ML BOTTLE IV ONE (13:49)
[2022-12-02] MEDS ORDERED: LIDOCAINE HCL/PF 1% 10 MG/ML 5ML VIAL ONE (13:49)
[2022-12-02] MEDS ORDERED: MIDAZOLAM HCL 2 MG/2 ML VIAL ONE (14:23)
[2022-12-02] MEDS ORDERED: FENTANYL CITRATE/PF 50MCG/ML 2ML VIAL ONE (14:23)
[2022-12-02 16:08] VITALS: BP 130/62
[2022-12-02 20:00] VITALS: BP 118/47
[2022-12-02] MEDS: ENOXAPARIN 30MG/0.3ML SYR SUBCUT SCH (21:38)
[2022-12-02] MEDS: INSULIN GLARGINE 100 UNITS/ML SUBCUT SCH (21:39)
[2022-12-03] VITALS (8 sets, daily range): BP systolic 110–149; BP diastolic 46–99
[2022-12-03] MEDS: SODIUM CHLORIDE 0.9% 1,000 ML IV SCH ×2 (00:48→13:28)
[2022-12-03] MEDS: METHYLPREDNISOLONE SOD SUCC 40 MG/ML VIAL IV SCH ×2 (03:15→11:08)
[2022-12-03] MEDS: LACTULOSE 20G/30ML UDC PO SCH ×3 (06:00→21:49)
[2022-12-03] MEDS: BLOOD SUGAR DIAGNOSTIC STRIP TEST SCH ×4 (06:50→21:49)
[2022-12-03] MEDS: INSULIN LISPRO 100 UNITS/ML SUBCUT SCH ×4 (07:20→21:00)
[2022-12-03] MEDS: AMLODIPINE 5MG TABLET PO SCH ×2 (09:00→11:17)
[2022-12-03 12:52] LABS: HEMATOCRIT 31.8 % (42.0-52.0); HEMOGLOBIN 10.4 g/dL (14.0-18.0); MEAN CORPUSCULAR HEMOGLOBIN 27.8 pg (28.0-32.0); MEAN CORPUSCULAR VOLUME 85.1 fL (80.0-94.0); PLATELET 181 x1000/uL (130-400); RED BLOOD CELL COUNT 3.74 mill/uL (4.7-6.1); RED CELL DISTRIBUTION WIDTH 14.6 % (11.6-14.6)
[2022-12-03 13:53] LABS: CHLORIDE 99 mEq/L (98-107)
[2022-12-03 14:07] LABS: PHOSPHORUS 3.4 mg/dL (2.5-4.9)
[2022-12-03] MEDS: IPRATROPIUM/ALBUTEROL 0.5-3(2.5)MG/3ML NEB HHN SCH (21:06)
[2022-12-03] MEDS: BUDESONIDE 0.5MG/2ML NEB HHN SCH (21:06)
[2022-12-03] MEDS: INSULIN GLARGINE 100 UNITS/ML SUBCUT SCH (21:48)
[2022-12-03] MEDS: ENOXAPARIN 30MG/0.3ML SYR SUBCUT SCH (21:49)
[2022-12-04] VITALS: BP 134/57
[2022-12-04] MEDS: IPRATROPIUM/ALBUTEROL 0.5-3(2.5)MG/3ML NEB HHN SCH ×4 (02:24→21:27)
[2022-12-04] MEDS: SODIUM CHLORIDE 0.9% 1,000 ML IV SCH ×2 (03:47→16:18)
[2022-12-04 04:00] VITALS: BP 122/57
[2022-12-04] MEDS: BLOOD SUGAR DIAGNOSTIC STRIP TEST SCH ×4 (06:58→21:00)
[2022-12-04] MEDS: LACTULOSE 20G/30ML UDC PO SCH ×3 (06:58→21:24)
[2022-12-04] MEDS: DEXTROSE 50% WATER 50ML SYRINGE IV PRN (07:05)
[2022-12-04] MEDS: INSULIN LISPRO 100 UNITS/ML SUBCUT SCH ×4 (07:20→21:00)
[2022-12-04 08:00] VITALS: BP 130/81
[2022-12-04] MEDS: BUDESONIDE 0.5MG/2ML NEB HHN SCH (09:51)
[2022-12-04] MEDS: AMLODIPINE 5MG TABLET PO SCH (11:15)
[2022-12-04] MEDS: PREDNISONE 20MG TABLET PO SCH (11:15)
[2022-12-04 12:00] VITALS: BP 109/61
[2022-12-04 16:00] VITALS: BP 124/62
[2022-12-04 17:37] LABS: CHLORIDE 103 mEq/L (98-107)
[2022-12-04 20:01] VITALS: BP 129/54
[2022-12-04] MEDS: ENOXAPARIN 30MG/0.3ML SYR SUBCUT SCH (21:25)
[2022-12-04] MEDS: INSULIN GLARGINE 100 UNITS/ML SUBCUT SCH (21:27)
[2022-12-05] VITALS: BP 132/60
[2022-12-05] MEDS: IPRATROPIUM/ALBUTEROL 0.5-3(2.5)MG/3ML NEB HHN SCH ×3 (01:38→14:29)
[2022-12-05 04:00] VITALS: BP 139/64
[2022-12-05] MEDS: SODIUM CHLORIDE 0.9% 1,000 ML IV SCH (05:07)
[2022-12-05] MEDS: DEXTROSE 50% WATER 50ML SYRINGE IV PRN (06:19)
[2022-12-05] MEDS: BLOOD SUGAR DIAGNOSTIC STRIP TEST SCH ×2 (06:23→11:50)
[2022-12-05] MEDS: INSULIN LISPRO 100 UNITS/ML SUBCUT SCH (06:23)
[2022-12-05] MEDS: LACTULOSE 20G/30ML UDC PO SCH ×2 (06:27→14:00)
[2022-12-05 07:02] LABS: HEMATOCRIT 27.3 % (42.0-52.0); HEMOGLOBIN 9.1 g/dL (14.0-18.0); MEAN CORPUSCULAR HEMOGLOBIN 28.3 pg (28.0-32.0); MEAN CORPUSCULAR VOLUME 85.1 fL (80.0-94.0); PLATELET 144 x1000/uL (130-400); RED BLOOD CELL COUNT 3.21 mill/uL (4.7-6.1); RED CELL DISTRIBUTION WIDTH 14.5 % (11.6-14.6)
[2022-12-05] MEDS ORDERED: DEXT 5%/0.9% NACL 1,000 ML IV SCH (07:15)
[2022-12-05] MEDS: PREDNISONE 20MG TABLET PO SCH (07:49)
[2022-12-05] MEDS: AMLODIPINE 5MG TABLET PO SCH (07:50)
[2022-12-05 08:11] LABS: CHLORIDE 105 mEq/L (98-107)
[2022-12-05 08:13] VITALS: BP 146/64
[2022-12-05] MEDS: BUDESONIDE 0.5MG/2ML NEB HHN SCH (10:45)
[2022-12-05 12:00] VITALS: BP 143/66
[2022-12-05] MEDS ORDERED: INSULIN LISPRO 100 UNITS/ML SUBCUT SCH (12:20)
[2022-12-05] MEDS ORDERED: P20 PO (12:30)
[2022-12-05 12:49] VITALS: BP 146/58
[2022-12-05] MEDS ORDERED: INSULIN GLARGINE 100 UNITS/ML SUBCUT SCH (22:00)
== END 2022-12-05 15:24 | DRG 286 ==
LOC: ER 12:11 → 5EST 17:11 → EDBEDREQ 17:13 → EDBEDREQTM 17:13 → ENRESERV 19:24 → 7EST 23:30 → 3WST 12-02 15:48
PROVIDERS: ADMIT Internal Medicine; ATTEND Internal Medicine
PROC: 5A09357 Assistance with Respiratory Ventilation, Less than 24 Consecutive Hours, Continuous Positive Airway Pressure (ICD-10-PCS; 2022-11-25)
PROC: 5A09357 Assistance with Respiratory Ventilation, Less than 24 Consecutive Hours, Continuous Positive Airway Pressure (ICD-10-PCS; 2022-11-26)
PROC: 5A0935A Assistance with Respiratory Ventilation, Less than 24 Consecutive Hours, High Flow/Velocity Cannula (ICD-10-PCS; 2022-11-26)
PROC: 5A0935A Assistance with Respiratory Ventilation, Less than 24 Consecutive Hours, High Flow/Velocity Cannula (ICD-10-PCS; 2022-11-27)
PROC: 5A0935A Assistance with Respiratory Ventilation, Less than 24 Consecutive Hours, High Flow/Velocity Cannula (ICD-10-PCS; 2022-11-28)
PROC: 4A023N7 Measurement of Cardiac Sampling and Pressure, Left Heart, Percutaneous Approach (ICD-10-PCS; principal; 2022-12-02)
PROC: B2111ZZ Fluoroscopy of Multiple Coronary Arteries using Low Osmolar Contrast (ICD-10-PCS; 2022-12-02)
DX: I25.10 Atherosclerotic heart disease of native coronary artery without angina pectoris (principal); J96.01 Acute respiratory failure with hypoxia; J96.02 Acute respiratory failure with hypercapnia; J44.1 Chronic obstructive pulmonary disease with (acute) exacerbation; E87.29 Other acidosis; E44.0 Moderate protein-calorie malnutrition; Z68.1 Body mass index [BMI] 19.9 or less, adult; J98.11 Atelectasis; I27.20 Pulmonary hypertension, unspecified; I08.0 Rheumatic disorders of both mitral and aortic valves; Z20.822 Contact with and (suspected) exposure to COVID-19; D63.8 Anemia in other chronic diseases classified elsewhere; E11.9 Type 2 diabetes mellitus without complications; I10 Essential (primary) hypertension; N40.0 Benign prostatic hyperplasia without lower urinary tract symptoms; D72.829 Elevated white blood cell count, unspecified; E78.00 Pure hypercholesterolemia, unspecified; F17.200 Nicotine dependence, unspecified, uncomplicated; Z99.81 Dependence on supplemental oxygen
CPT/HCPCS: 36415; 36600; 71045; 75572; 80048; 80053; 80061; 81003; 82375; 82805; 82962; 83036; 83605; 83735; 83880; 84100; 84132; 84145; 84439; 84443; 84484; 85025; 85027; 85379; 87426; 87804; 93005; 93306; 93458; 93970; 94640; 94660; 97116; 97162; 97166; 99285; C1769; C1887; C1893; C9803; J0456; J0696; J1644; J1650; J1815; J2250; J2920; J2930; J3010; J3490; J7030; J7042; J7060; J7512; J7626; Q9967